=== PATIENT | female | born 1955 | race Caucasian/White ===

== ENCOUNTER → 2016-11-09 | Outpatient (CLI) | payer OTHER ==
[~2016-11-09] VITALS: Ht 165.1 cm; Wt 108.0 kg
[~2016-11-09] MED LIST: AMLO10TA82 PO; ATEN25TA PO; ATOR40TA70 PO; DOCU-143 PO; GEMF600T3 PO; HYDR-3812 PO; HYOS0.1216 PO; LEVO150T6 PO; LISI-593 PO; LISI1TAB8 PO; METF-478 PO; METF500T4 PO; MIRT15TA6 PO; NITR-65 PO; OMEG-109 PO; OMEP-10 PO; PHEN100T17 PO; ROSU20TA14 PO; SODI30SP2 NS
--- OUTSIDE RECORDS SUMMARY | 2016-11-09 09:55 | XMS REPORT | Continuity of Care Document ---
Author Author [facility] Organization [facility] Address Unknown Phone Unavailable Care Team Providers Care Openstack Cloud Consulting Architect Name Role Phone Angie Quesada PCP [phone] Source Comments Some departments are not documenting in the electronic medical record. If you do not see the information that you expected, contact Release of Information in the Health Information Management department at [phone] for further assistance in locating additional records.[facility] Active Allergies and Adverse Reactions No Known Allergies Current Medications Prescription Sig. Disp. Refills Start End Date Status Date LISINOPRIL-HYDROCHLOROTHI Take by mouth. Active AZIDE PO amLODIPine (NORVASC) 10 Take 10 mg by mouth Active mg tablet daily. hyoscyamine (LEVSIN/SL) Take 1 Tab by mouth every 30 Tab 3 04/28/20 Active 0.125 mg tablet 4 hours as needed for 13 Cramps. Max 1.5 mg/ day magnesium hydroxide (MILK Take 30 mL by mouth every Active OF MAGNESIA) 400 mg/5 mL 24 hours as needed. oral suspension omeprazole DR(+) Take 20 mg by mouth Active (PRILOSEC) 20 mg capsule daily. oxyCODone-acetaminophen Take 1-2 Tabs by mouth 30 Tab 0 05/15/20 Active (PERCOCET; ENDOCET; every 4 hours as needed 13 ROXICET) 5-325 mg tablet for Pain Earliest Fill Date: 05/15/13 Max 12 tabs/day Active Problems Problem Noted Date Nephrolithiasis 05/13/2013 Urolithiasis 04/14/2013 Overview: 02/28/13 CT ~1x2cm right renal stone, non-obstructing. Few small left non-obstructing renal stones. Images available but no report. 03/07/13 urine culture negative. Cr 0.9. ~1x2cm R renal pelvis stone on KUB (per report). 03/11 Dr. Reeves in [place]: KUB 3 calcific densities on R. 3 densities on L. Underwent urethral dilation, insertion R UPJ stent 6x26. 03/18 ESWL attempted 03/21 calcium 11.7, Cr 1.1 L ast Assessment & Plan: -To OR for PCNL 05/13/2013 -Will require right lower pole access with IR 05/12/2013 -3 days levaquin to be taken prior to procedure -To be seen by PAT today -Urine for culture today -Continue levsin prn stent pain. Will add oxybutynin 5mg bid. Discussed potential side effects of dry mouth, dry eyes, constipation. Social History Tobacco Use Types Packs/Day Years Used Date Former Smoker Cigarettes 2 45 Quit: 04/05/2011 Smokeless Tobacco: Never Used Alcohol Use Drinks/Week oz/Week Comments Yes rare Last Filed Vital Signs Vital Sign Reading Time Taken Blood Pressure 137/85 05/15/2013 10:49 AM CDT Pulse 94 05/15/2013 10:49 AM CDT Temperature 37.3 C (99.1 F) 05/15/2013 10:49 AM CDT Respiratory Rate 16 04/28/2013 11:12 AM CDT Height 1.651 m (5' 5") 05/13/2013 7:54 PM CDT Weight 120.2 kg (264 lb 15.9 oz) 05/13/2013 7:54 PM CDT Body Mass Index 44.1 05/13/2013 7:54 PM CDT Oxygen Saturation 94% 05/15/2013 10:49 AM CDT Plan of Care Health Maintenance Due Date Last Done Comments Physical (Comprehensive) 1962 Exam Pertussis Vaccine 1966 Tetanus Vaccine 1972 Cervical Cancer Screening 1976 Breast Cancer Screening 1995 Colorectal Cancer 2005 Screening Shingles Vaccine 2015 Influenza Vaccine 07/06/2016 Results from Last 3 Months Not on file
[2016-11-09 10:09] VITALS: BP 142/68
[2016-11-09 10:44] LABS: BASOPHILS % (AUTO) 1 % (0-10); EOSINOPHILS # (AUTO) 0.3 10^3/uL (0.0-0.3); EOSINOPHILS % (AUTO) 5 % (0-10); LYMPHOCYTES # (AUTO) 1.8 X 10^3 (1.0-4.0); LYMPHOCYTES % (AUTO) 30 % (12-44); MEAN CORPUSCULAR HEMOGLOBIN 28 PG (25-34); MEAN CORPUSCULAR HGB CONC 32 G/DL (32-36); MEAN CORPUSCULAR VOLUME 88 FL (80-99); MEAN PLATELET VOLUME 11.7 FL (7.4-10.4); MONOCYTES # (AUTO) 0.5 X 10^3 (0.0-1.0); MONOCYTES % (AUTO) 8 % (0-12); NEUTROPHILS # (AUTO) 3.4 X 10^3 (1.8-7.8); NEUTROPHILS % (AUTO) 56 % (42-75); PLATELET COUNT 341 10^3/uL (130-400); RED BLOOD COUNT 3.83 10^6/uL (4.35-5.85); RED CELL DISTRIBUTION WIDTH 14.8 % (10.0-14.5)
[2016-11-09 10:59] LABS: ANION GAP 8 MMOL/L (5-14); BLOOD UREA NITROGEN 22 MG/DL (7-18); BUN/CREATININE RATIO 23; CALCIUM 10.3 MG/DL (8.5-10.1); CARBON DIOXIDE 25 MMOL/L (21-32); CHLORIDE 107 MMOL/L (98-107); CREATININE SERUM 0.94 MG/DL (0.60-1.30); GFR ESTIMATED > 60; GLUCOSE 141 MG/DL (70-105); SODIUM 140 MMOL/L (135-145)
== END ==
LOC: PREOP 09:50
PROVIDERS: ATTEND Surgery
DX: Z01.812 Encounter for preprocedural laboratory examination (principal); Z11.2 Encounter for screening for other bacterial diseases; E21.3 Hyperparathyroidism, unspecified
CPT/HCPCS: 36415; 80048; 85025; 87081

== ENCOUNTER 2016-11-15 06:00 | Day surgery (SDC) | payer OTHER ==
[~2016-11-15] VITALS: Ht 165.1 cm; Wt 108.0 kg
[~2016-11-15 06:00] MED LIST changes: -DOCU-143 PO; -HYDR-3812 PO; -LEVO150T6 PO; -LISI1TAB8 PO; -METF-478 PO; -SODI30SP2 NS
[2016-11-15 06:24] VITALS: BP 124/67
[2016-11-15] MEDS ORDERED: FAMOTIDINE 20MG/2ML IV (PEPCID) ONE (06:38)
[2016-11-15] MEDS ORDERED: FAMOTIDINE 20MG/2ML IV (PEPCID) IV ONE (06:45)
--- OUTSIDE RECORDS SUMMARY | 2016-11-15 06:46 | XMS REPORT | Continuity of Care Document ---
Author Author [facility] Organization [facility] Address Unknown Phone Unavailable Care Team Providers Care Bunch Maker Hand Name Role Phone Angie Quesada PCP [phone] Source Comments Some departments are not documenting in the electronic medical record. If you do not see the information that you expected, contact Release of Information in the Health Information Management department at [phone] for further assistance in locating additional records.[facility] Active Allergies and Adverse Reactions [...] KUB (per report). 03/11 Dr. Reeves in [place]: KUB 3 calcific densities on R. 3 [...]
--- OUTSIDE RECORDS SUMMARY | 2016-11-15 06:46 | XMS REPORT | Continuity of Care Document ---
Author Author [facility] Organization [facility] Address Unknown Phone Unavailable Care Team Providers Care Talent Scout Name Role Phone Angie Quesada PCP [phone] Source Comments Some departments are not documenting in the electronic medical record. If you do not see the information that you expected, contact Release of Information in the Health Information Management department at [phone] for further assistance in locating additional records.[facility] Active Allergies and Adverse Reactions No Known [...] KUB (per report). 03/11 Dr. Reeves in [place]: KUB 3 calcific densities on R. 3 [...]
[2016-11-15] MEDS ORDERED: LACTATED RINGERS 1,000 ML IV ONE ×3 (06:48→09:41)
[2016-11-15] MEDS ORDERED: proPOfol 200 MG/20 ML (DIPRIVAN) VIAL IV ONE (06:48)
[2016-11-15] MEDS ORDERED: ONDANSETRON 4 MG/2 ML (SDV) Z0FRAN ONE (06:48)
[2016-11-15] MEDS ORDERED: SEVOFLURANE (ULTANE) 15 ML INHAL SOLN ONE ×2 (06:48→09:41)
[2016-11-15] MEDS ORDERED: LIDOCAINE PF 2% 10 ML (XYLOCAINE) AMP ONE (06:48)
[2016-11-15] MEDS ORDERED: DEXAMETHASONE PF 10 MG/ML (DECADRON) VIAL ONE (06:48)
[2016-11-15] MEDS ORDERED: SUCCINYLCHOLINE INJ 100 MG/5 ML SYR ONE (06:48)
[2016-11-15] MEDS ORDERED: fentaNYL INJECTION 250 MCG/5 ML AMP ONE (06:49)
[2016-11-15] MEDS ORDERED: MIDAZOLAM 2 MG/2 ML (VERSED) VIAL ONE (06:49)
[2016-11-15] MEDS: LACTATED RINGERS 1,000 ML IV PRN ×3 (06:50→09:50)
[2016-11-15] MEDS ORDERED: THROMBIN SPRAY KIT 5,000 UNIT VIAL ONE (06:52)
[2016-11-15] MEDS ORDERED: BUP/EPI 0.25% 1:200,000 (MARCAINE) 30 ML VIAL ONE (06:52)
[2016-11-15] MEDS ORDERED: ceFAZolin 2 GM IV (SDC ONLY) 50 ML ONE (07:36)
--- NOTE | 2016-11-15 07:44 | Progress Note-Pre Operative ---
Pre-Operative Progress Note H&P Reviewed The H&P was reviewed, patient examined and no changes noted. Date H&P Reviewed: Nov 15, 2016 Time H&P Reviewed: 07:43 Pre-Operative Diagnosis: Follicular neoplasm of thyroid. Persistent Hyperparathyroidism JANET SIMS MD Nov 15, 2016 7:44 am
[2016-11-15] MEDS ORDERED: ceFAZolin 2GM/50 ML DEXTROSE (PREMIX) IV ONE (09:45)
--- NOTE | 2016-11-15 09:53 | Progress Note-Post Operative ---
Post-Operative Progess Note Pre-Operative Diagnosis Follicular Neoplasm of Thyroid, Persistent Hyperparathyroidism Post-Operative Diagnosis Same Post-Op Procedure Note Date of Procedure: Nov 15, 2016 Name of Procedure: total thyroidectomy with nerve monitoring Wedge biopsy of left inferior parathyroid gland Anesthesia Type Gen. Estimated blood loss (mL): 50 mL Specimen(s) collected both lobes of thyroid and a wedge of left inferior parathyroid gland JANET SIMS MD Nov 15, 2016 09:53
[2016-11-15] MEDS ORDERED: LEVO150T6 PO (09:55)
[2016-11-15] MEDS ORDERED: HYDR-3812 PO (09:55)
--- NOTE | 2016-11-15 09:57 | Discharge Inst-Simple/Standard ---
Discharge Inst-Standard Discharge Medications New, Converted or Re-Newed RX: RX on Chart Patient Instructions/Follow Up Plan of Care/Instructions/FU: dressings off in a.m. Follow-up in 4 weeks. Activity as Tolerated: Yes Discharge Diet: No Restrictions JANET SIMS MD Nov 15, 2016 09:57
[2016-11-15] MEDS ORDERED: fentaNYL INJECTION 100 MCG/2 ML AMP IVP PRN (10:00)
[2016-11-15] MEDS ORDERED: ONDANSETRON 4 MG/2 ML (SDV) Z0FRAN IVP PRN ×2 (10:00→10:15)
[2016-11-15] MEDS ORDERED: morphine INJ 10 MG/ML 1ML (SYR OR VIAL) ONE (10:02)
[2016-11-15] MEDS ORDERED: LABETALOL HCL 20 MG/4 ML VIAL ONE (10:11)
[2016-11-15] MEDS: morphine INJ 10 MG/ML 1ML (SYR OR VIAL) IVP PRN ×2 (10:12→10:24)
[2016-11-15] MEDS ORDERED: HYDROmorphone (DILAUDID) 2 MG/ML VIAL IVP PRN (10:15)
[2016-11-15] MEDS ORDERED: MEPERIDINE (DEMEROL) INJ 50 MG/ML IVP PRN (10:15)
[2016-11-15] MEDS ORDERED: HYDROmorphone (DILAUDID) 2 MG/ML VIAL ONE (10:18)
[2016-11-15] MEDS ORDERED: LABETALOL HCL 20 MG/4 ML VIAL IV ONE (10:30)
--- NOTE | 2016-11-15 10:38 | OPERATIVE REPORT ---
PROCEDURE PHYSICIAN: JANET SIMS DATE OF PROCEDURE: 11/15/2016 PREOPERATIVE DIAGNOSIS: 1. Follicular neoplasm of thyroid 2. Persistent hyperparathyroidism. POSTOPERATIVE DIAGNOSIS: 1. Follicular neoplasm of thyroid. 2. Persistent hyperparathyroidism. OPERATION: 1. Total thyroidectomy. 2. Wedge biopsy of normal left inferior parathyroid gland. 3. Intraoperative nerve monitoring. SURGEON: Luis ANESTHESIA: General anesthesia. BLOOD LOSS: 50 mL. FLUIDS: 2 liters of crystalloids. TYPE OF WOUND: Type I (clean wound). INDICATION FOR THE PROCEDURE: This lady underwent excision of a large left superior parathyroid adenoma at an outside facility in August 2015. She had persistent hyperparathyroidism. However, imaging was negative for any missed adenoma. During this evaluation, a large thyroid nodule became evident. Core biopsy was indicative of follicular neoplasm. Therefore, total thyroidectomy was felt to be reasonable. The possibility of finding an intrathyroidal parathyroid adenoma contributing to persistent hyperparathyroidism was discussed. With regard to the operation itself, complications of hematoma, transient hoarseness of voice and hypocalcemia were discussed with her. DESCRIPTION OF PROCEDURE: She was placed supine on the operating table and general anesthesia induced using an endotracheal. Ancef was administered intravenously as prophylaxis against wound infection. Sequential compression devices were placed around her legs, to minimize the risk of venous thrombosis. A Sandoval catheter was placed to decompress the bladder during surgery. It was removed at the end of the operation. Her neck and upper chest were prepared and draped in the usual sterile manner. Preemptive analgesia was established using 0.25% Marcaine with epinephrine. A secondary incision was made along the previous scar and platysma incised transversely. Flaps were raised superiorly to the level of the thyroid cartilage and inferiorly to the sternal notch. Cervical fascia was incised vertically and the strap muscles were retracted laterally. I began the dissection on the left side. A hard thyroid nodule containing the follicular neoplasm came into view. The lobe was retracted medially identifying a distinct middle thyroid vein. This was controlled using harmonic scalpel. Subsequently, superior thyroid artery was controlled between 2-0 silk sutures, reinforced with Ligaclips. Branches of the inferior thyroid artery were controlled using Harmonic scalpel and Ligaclips. Recurrent laryngeal nerve was identified by constant visual inspection and intermittent nerve stimulation technique. The isthmus was then divided and the left lobe sent for permanent histologic examination. A normal looking parathyroid gland, possibly inferior in location was identified and confirmed by obtaining a wedge of tissue for frozen section analysis. I then examined the thymus gland; I did not identify any additional parathyroid adenoma. The carotid sheath was palpated and no additional adenoma was encountered. Therefore, we elected to proceed with the right lobectomy. A similar dissection was performed on the right side. Recurrent nerve was found in its conventional location and protected. One parathyroid gland, possibly superior in location was found to be of normal size. It was preserved, along with its blood supply. Superior thyroid artery was controlled using 2-0 silk sutures and a Ligaclips and lobectomy completed. We had the anesthesiologist conduct Valsalva maneuver, looking for any venous bleeding. There was not any. Gelfoam, soaked in thrombin solution was then placed along the tracheoesophageal groove to optimize hemostasis. Neck was then flexed, in preparation for closure. Cervical fascia was approximated using 3-0 Vicryl and platysma using the same material. The skin was closed using 4-0 Vicryl, in a subcuticular fashion. She tolerated the procedure well, was extubated in the operating room and taken to the recovery room in a stable condition. Tracy, sponges, and instruments were correct at the end of the operation. Job ID: [id number] Dictated Date: 11/15/2016 09:49:35 Engineer Remote Control Diesel Date: 11/15/2016 10:17:08 / ever PEGUERO
[2016-11-15] MEDS: inSUlin ASPART (NovoLOG) 1 UNIT/0.01 ML (CHARGE PER UNIT) SC SCH ×3 (11:00→20:56)
[2016-11-15 11:15] VITALS: BP 195/86
[2016-11-15] MEDS: meTOprolol 5 MG/5 ML (LOPRESSOR) VIAL IV SCH ×2 (11:35→18:27)
[2016-11-15] MEDS ORDERED: METF-478 PO (13:03)
[2016-11-15] MEDS ORDERED: SODI30SP2 NS (13:03)
[2016-11-15] MEDS ORDERED: LISI1TAB8 PO (13:03)
[2016-11-15] MEDS ORDERED: DOCU-143 PO (13:03)
[2016-11-15] MEDS: LACTATED RINGERS 1,000 ML IV SCH ×2 (13:28→20:00)
[2016-11-15] MEDS ORDERED: DOCUSATE SODIUM 100 MG (COLACE) CAP PO PRN (14:00)
[2016-11-15] MEDS ORDERED: METFORMIN HCL 500 MG PO SCH (14:00)
[2016-11-15] MEDS: lisINopril 20 MG (ZESTRIL) TAB PO SCH (14:33)
[2016-11-15] MEDS: HYDROCHLOROTHIAZIDE 25 MG (HCTZ) TAB PO SCH (14:33)
[2016-11-15] MEDS: HYDROcodone/APAP 5 MG/325 MG (LORTAB) TAB PO PRN ×2 (14:37→19:20)
[2016-11-15] MEDS ORDERED: FLU TRIvalent (5 YOA+) 2016-17 (AFLURIA) 0.5 ML IM ONE (14:45)
[2016-11-15 16:00] VITALS: BP 164/85
[2016-11-15] MEDS ORDERED: metFORMIN XR 500 MG (GLUCOPHAGE XR) TAB PO SCH (17:00)
[2016-11-15] MEDS: OMEGA 3 (FISH OIL) 1000 MG CAP PO SCH (17:35)
[2016-11-15 19:00] VITALS: BP 169/89
[2016-11-15] MEDS: PANTOPRAZOLE 20 MG TABLET (PROTONIX) PO SCH (21:00)
[2016-11-15] MEDS ORDERED: OMEPRAZOLE 20 MG (PriLOSEC) CAP NON-FORMULARY PO SCH (21:00)
[2016-11-15] MEDS ORDERED: NON-FORMULARY MEDICATION 1 EA EA (Omega-3 Fatty Acids/Fish Oil (Fish Oil 1,200 mg Softgel) PO SCH (21:00)
[2016-11-15] MEDS ORDERED: ATENOLOL 25 MG (TENORMIN) TAB PO SCH (21:00)
[2016-11-15] MEDS ORDERED: NON-FORMULARY MEDICATION 1 EA EA (Mirtazapine 15 MG) PO SCH (21:00)
[2016-11-15] MEDS: GEMFIBROZIL 600 MG (LOPID) TAB PO SCH (21:00)
[2016-11-15] MEDS ORDERED: MIRTAZAPINE 15 MG (REMERON) TAB PO SCH (21:00)
[2016-11-16] VITALS: BP 137/80
[2016-11-16] MEDS: HYDROcodone/APAP 5 MG/325 MG (LORTAB) TAB PO PRN ×3 (00:05→12:07)
[2016-11-16] MEDS: meTOprolol 5 MG/5 ML (LOPRESSOR) VIAL IV SCH ×3 (00:13→12:00)
[2016-11-16 04:00] VITALS: BP 162/71
[2016-11-16] MEDS: LACTATED RINGERS 1,000 ML IV SCH (05:57)
[2016-11-16] MEDS: inSUlin ASPART (NovoLOG) 1 UNIT/0.01 ML (CHARGE PER UNIT) SC SCH ×2 (06:00→12:06)
[2016-11-16 06:16] LABS: CALCIUM 8.7 MG/DL (8.5-10.1); CREATININE SERUM 1.36 MG/DL (0.60-1.30); MAGNESIUM 1.7 MG/DL (1.8-2.4); PHOSPHORUS 4.7 MG/DL (2.3-4.7); POTASSIUM 4.6 MMOL/L (3.6-5.0)
[2016-11-16] MEDS: OMEGA 3 (FISH OIL) 1000 MG CAP PO SCH (06:48)
[2016-11-16] MEDS: PANTOPRAZOLE 20 MG TABLET (PROTONIX) PO SCH (06:48)
[2016-11-16 08:00] VITALS: BP 115/55
[2016-11-16] MEDS: GEMFIBROZIL 600 MG (LOPID) TAB PO SCH (09:00)
[2016-11-16] MEDS: lisINopril 20 MG (ZESTRIL) TAB PO SCH (09:00)
[2016-11-16] MEDS ORDERED: ATORVASTATIN 40 MG (LIPITOR) TABLET PO SCH (09:00)
[2016-11-16] MEDS: HYDROCHLOROTHIAZIDE 25 MG (HCTZ) TAB PO SCH (09:00)
[2016-11-16] MEDS: MAGNESIUM 1 GM/100 ML IVPB 100 ML IV SCH ×2 (09:00→10:26)
[2016-11-16 12:00] VITALS: BP_SYST 112; BP_SYST 158; BP_DIAS 70; BP_DIAS 79
[2016-11-16] MEDS ORDERED: LEVOTHYROXINE 150 MCG (LEVOTHROID) TAB PO NR (12:15)
[2016-11-16 13:20] VITALS: BP 112/70
--- NOTE | 2016-11-16 13:28 | Progress Note-Standard ---
Standard Progress Note Progress Notes/Assess & Plan Progress/Assessment & Plan 11/16/16:doing well. Vocal cord function normal. No wound hematoma. Calcium back to normal. Magnesium low this morning, replaced. Be discharged home. Final Diagnosis follicular neoplasm of thyroid JANET SIMS MD Nov 16, 2016 1:28 pm
== END 2016-11-16 14:05 | disposition home or self-care (01) ==
LOC: SDC 06:00 → 4TH 11:21 → SDC 11-16 14:05
PROVIDERS: ATTEND Surgery
DX: C73 Malignant neoplasm of thyroid gland (principal); E21.3 Hyperparathyroidism, unspecified; Z11.2 Encounter for screening for other bacterial diseases; Z79.899 Other long term (current) drug therapy
CPT/HCPCS: 36415; 80048; 82962; 83735; 84100; 88305; 88307; 88331

== ENCOUNTER → 2016-12-11 | Outpatient (CLI) | payer OTHER ==
[~2016-12-11] MED LIST changes: +DOCU-143 PO; +HYDR-3812 PO; +LEVO150T6 PO; +LISI1TAB8 PO; +METF-478 PO; +SODI30SP2 NS
--- OUTSIDE RECORDS SUMMARY | 2016-12-11 14:28 | XMS REPORT | Continuity of Care Document ---
Author Author [facility] Organization [facility] Address Unknown Phone Unavailable Care Team Providers Care Return To Service Inspector Name Role Phone Angie Quesada PCP [phone] Source Comments Some departments are not documenting in the electronic medical record. If you do not see the information that you expected, contact Release of Information in the Health Information Management department at [phone] for further assistance in locating additional records.[facility] Active Allergies and Adverse Reactions No [...] KUB (per report). 03/11 Dr. Reeves in [place]: KUB 3 calcific densities on R. 3 [...]
[2016-12-11 23:32] LABS: CALCIUM IONIZED 1.32 mmol/L (1.16-1.32); CORRECTED IONIZED CALCIUM 1.31 mmol/L (1.16-1.32)
[2016-12-12 07:44] LABS: CALCIUM PARA THYROID HORMONE 10.1 mg/dL (8.5-10.5); CALCIUM PH 7.4
== END ==
LOC: LAB 14:26
PROVIDERS: ATTEND Surgery
DX: C73 Malignant neoplasm of thyroid gland (principal)
CPT/HCPCS: 36415; 82330; 83970; 84436; 84443; 84480

== ENCOUNTER 2016-12-14 05:42 | Outpatient (CLI) | payer OTHER ==
[~2016-12-14] VITALS: Ht 165.1 cm; Wt 108.0 kg
--- OUTSIDE RECORDS SUMMARY | 2016-12-14 05:44 | XMS REPORT | Continuity of Care Document ---
Author Author [facility] Organization [facility] Address Unknown Phone Unavailable Care Team Providers Care Integrated Marketing Specialist Name Role Phone Angie Quesada PCP [phone] Source Comments Some departments are not documenting in the electronic medical record. If you do not see the information that you expected, contact Release of Information in the Health Information Management department at [phone] for further assistance in locating additional records.[facility] Active Allergies and Adverse Reactions [...] KUB (per report). 03/11 Dr. Reeves in [place]: KUB 3 calcific densities on R. 3 [...]
== END 2016-12-14 14:46 ==
LOC: PREOP 05:42
PROVIDERS: ATTEND Surgery
DX: Z01.818 Encounter for other preprocedural examination (principal); R13.10 Dysphagia, unspecified

== ENCOUNTER 2016-12-18 06:48 | Day surgery (SDC) | payer OTHER ==
[~2016-12-18] VITALS: Ht 165.1 cm; Wt 108.0 kg
--- OUTSIDE RECORDS SUMMARY | 2016-12-18 06:52 | XMS REPORT | Continuity of Care Document ---
Author Author [facility] Organization [facility] Address Unknown Phone Unavailable Care Team Providers Care Take Out Waitress Name Role Phone Angie Quesada PCP [phone] Source Comments Some departments are not documenting in the electronic medical record. If you do not see the information that you expected, contact Release of Information in the Health Information Management department at [phone] for further assistance in locating additional records.[facility] Active Allergies and Adverse Reactions No [...] KUB (per report). 03/11 Dr. Reeves in [place]: KUB 3 calcific densities on R. 3 [...]
--- OUTSIDE RECORDS SUMMARY | 2016-12-18 06:52 | XMS REPORT | Continuity of Care Document ---
Author Author [facility] Organization [facility] Address Unknown Phone Unavailable Care Team Providers Care Application Systems Architect Name Role Phone Angie Quesada PCP [phone] Source Comments Some departments are not documenting in the electronic medical record. If you do not see the information that you expected, contact Release of Information in the Health Information Management department at [phone] for further assistance in locating additional records.[facility] Active Allergies and Adverse Reactions No [...] KUB (per report). 03/11 Dr. Reeves in [place]: KUB 3 calcific densities on R. 3 [...]
[2016-12-18] MEDS ORDERED: fentaNYL INJECTION 100 MCG/2 ML AMP IVP PRN (07:15)
[2016-12-18] MEDS ORDERED: NALOXONE 0.4 MG/ML 1 ML (NARCAN) VIAL IVP PRN (07:15)
[2016-12-18] MEDS ORDERED: FLUMAZENIL (ROMAZICON) 0.1 MG/ML 5 ML VIAL INJ PRN (07:15)
[2016-12-18] MEDS ORDERED: HURRICAINE EXT TUBE (BENZOCAINE) XX PRN (07:15)
[2016-12-18] MEDS ORDERED: NS IV 500 ML 500 ML IV SCH (07:15)
[2016-12-18 07:44] VITALS: BP 140/67
[2016-12-18] MEDS: MIDAZOLAM 2 MG/2 ML (VERSED) VIAL IVP PRN ×3 (08:13→08:22)
[2016-12-18] MEDS ORDERED: MIDAZOLAM 2 MG/2 ML (VERSED) VIAL ONE ×3 (08:13→08:14)
[2016-12-18] MEDS ORDERED: HURRICAINE EXT TUBE (BENZOCAINE) ONE (08:14)
[2016-12-18] MEDS ORDERED: fentaNYL INJECTION 100 MCG/2 ML AMP ONE (08:14)
--- NOTE | 2016-12-18 08:17 | Pre-Op Note & Conscious Sedat ---
Pre-Operative Progress Note H&P Reviewed The H&P was reviewed, patient examined and no changes noted. Date H&P Reviewed: Dec 18, 2016 Time H&P Reviewed: 08:16 Pre-Op Diagnosis: dysphagia Conscious Sedation Pre-Proced ASA Class: 2 Airway Mallampati Classification: ([place] appropriate class) I. II. III, IV Lungs Heart ASA score ASA 1: a normal healthy patient ASA 2: a patient with a mild systemic disease (mid diabetes, controlled hypertension, obesity ASA 3: a patient with a severe systemic disease that limits activity (angina , COPD, prior Myocardial infarction) ASA 4: a patient with an incapacitating disease that is a constant threat to life (CHF, renal failure) ASA 5: a moribund patient not expected to survive 24 hrs. (ruptured aneurysm) ASA 6: a declared brain patient whose organs are being harvested. For emergent operations, add the letter E after the classification Grade 2 Sedation Plan: Discussed options with patient/fam Note The patient is an appropriate candidate to undergo the planned procedure, sedation, and anesthesia. The patient immediately re-assessed prior to indication. JANET SIMS MD Dec 18, 2016 8:17 am
--- NOTE | 2016-12-18 08:47 | Progress Note-Post Operative ---
Post-Operative Progess Note Pre-Operative Diagnosis dysphagia Post-Operative Diagnosis hhiatal hernia with a peptic stricture. Grade 2 esophagitis. Antral erosions and gastritis Post-Op Procedure Note Date of Procedure: Dec 18, 2016 Name of Procedure: EGD with antral biopsy Balloon dilatation of distal esophageal stricture Anesthesia Type sedation Specimen(s) collected antral mucosa JANET SIMS MD Dec 18, 2016 8:47 am
--- NOTE | 2016-12-18 08:48 | Discharge Inst-Simple/Standard ---
Discharge Inst-Standard Discharge Medications New, Converted or Re-Newed RX: Other Patient Instructions/Follow Up Plan of Care/Instructions/FU: follow-up with me in 1 month. Activity as Tolerated: Yes Discharge Diet: Soft Diet JANET SIMS MD Dec 18, 2016 8:48 am
[2016-12-18 08:50] VITALS: BP 144/58
[2016-12-18 09:15] VITALS: BP 156/63
--- NOTE | 2016-12-18 09:30 | PROCEDURE REPORT ---
PROCEDURE PHYSICIAN: JANET SIMS DATE OF PROCEDURE: 12/18/2016 PROCEDURE: 1. Upper GI endoscopy with antral biopsy. 2. Balloon dilatation of esophageal stricture. SURGEON: Dr. Sims. INDICATION FOR THE PROCEDURE: This lady presented with dysphagia and chronic symptoms of gastroesophageal reflux. She was offered endoscopy with a view to performing balloon dilatation, should a stricture be confirmed. Informed consent was obtained after reviewing the procedure in detail. DESCRIPTION OF PROCEDURE: She was placed in left lateral decubitus position and her vital signs were monitored. Conscious sedation was achieved using Versed and fentanyl. The flexible gastroscope was introduced down the esophagus, past the stomach, into the proximal duodenum. FINDINGS: ESOPHAGUS: 1. Hiatal hernia with a peptic stricture at the distal end. It was dilated to 20 mm with a balloon. 2. Changes of grade 2 esophagitis were also encountered, proximal to the stricture. STOMACH: Distal gastritis with a very small antral erosion. Biopsy was obtained for Helicobacter status. DUODENUM: Normal. She tolerated the procedure well and was taken back to the nursing area in stable condition. IMPRESSION: 1. Dysphagia due to a distal esophageal peptic stricture. 2. Balloon dilatation completed. Job ID: [id number] Dictated Date: 12/18/2016 08:45:11 Wood Handler Date: 12/18/2016 09:27:09 / joanne PEGUERO
[2016-12-18 09:45] VITALS: BP 156/63
== END 2016-12-18 10:00 | disposition home or self-care (01) ==
LOC: ENDO 06:48
PROVIDERS: ATTEND Surgery
DX: K22.2 Esophageal obstruction (principal); K20.9 Esophagitis, unspecified; K44.9 Diaphragmatic hernia without obstruction or gangrene; K29.70 Gastritis, unspecified, without bleeding
CPT/HCPCS: 88305

== ENCOUNTER → 2017-01-22 | Outpatient (CLI) | payer OTHER ==
--- OUTSIDE RECORDS SUMMARY | 2017-01-22 16:57 | XMS REPORT | Continuity of Care Document ---
Author Author [facility] Organization [facility] Address Unknown Phone Unavailable Care Team Providers Care Finance Analyst Name Role Phone Angie Quesada PCP [phone] Source Comments Some departments are not documenting in the electronic medical record. If you do not see the information that you expected, contact Release of Information in the Health Information Management department at [phone] for further assistance in locating additional records.[facility] Active Allergies and Adverse Reactions No [...] KUB (per report). 03/11 Dr. Reeves in [place]: KUB 3 calcific densities on R. 3 [...]
[2017-01-22 17:18] LABS: CALCIUM 10.1 MG/DL (8.5-10.1)
[2017-01-22 17:46] LABS: THYROID STIMULATING HORMONE 0.08 UIU/ML (0.35-4.94)
[2017-01-24 12:09] LABS: CALCIUM PARA THYROID HORMONE 10.4 mg/dL (8.5-10.5)
== END ==
LOC: LAB 16:52
PROVIDERS: ATTEND Surgery
DX: E05.90 Thyrotoxicosis, unspecified without thyrotoxic crisis or storm (principal); E89.0 Postprocedural hypothyroidism
CPT/HCPCS: 36415; 82310; 83970; 84443

== ENCOUNTER 2017-02-08 05:47 | Outpatient (CLI) | payer OTHER ==
[~2017-02-08] VITALS: Ht 165.1 cm; Wt 117.9 kg
== END 2017-02-08 12:54 ==
LOC: PREOP 05:47
PROVIDERS: ATTEND Surgery
DX: Z01.818 Encounter for other preprocedural examination (principal); K59.00 Constipation, unspecified

== ENCOUNTER 2017-02-12 07:26 | Day surgery (SDC) | payer OTHER ==
[~2017-02-12] VITALS: Ht 165.1 cm; Wt 117.9 kg
[2017-02-12] MEDS ORDERED: NS IV 500 ML 500 ML IV SCH (07:30)
[2017-02-12] MEDS ORDERED: NALOXONE 0.4 MG/ML 1 ML (NARCAN) VIAL IVP PRN (07:30)
[2017-02-12] MEDS ORDERED: FLUMAZENIL (ROMAZICON) 0.1 MG/ML 5 ML VIAL INJ PRN (07:30)
[2017-02-12 07:44] VITALS: BP 107/71
[2017-02-12] MEDS ORDERED: MIDAZOLAM 2 MG/2 ML (VERSED) VIAL ONE ×3 (07:49)
[2017-02-12] MEDS ORDERED: fentaNYL INJECTION 100 MCG/2 ML AMP ONE ×2 (07:49)
[2017-02-12] MEDS: fentaNYL INJECTION 100 MCG/2 ML AMP IVP PRN ×4 (08:33→08:46)
[2017-02-12] MEDS: MIDAZOLAM 2 MG/2 ML (VERSED) VIAL IVP PRN ×3 (08:35→08:45)
--- NOTE | 2017-02-12 08:58 | Conscious Sedation/ASA ---
Conscious Sedation Pre-Proced ASA Class: 2 Airway Mallampati Classification: ([place] appropriate class) I. II. III, IV Lungs Heart ASA score ASA 1: a normal healthy patient ASA 2: a patient with a mild systemic disease (mid diabetes, controlled hypertension, obesity ASA 3: a patient with a severe systemic disease that limits activity (angina , COPD, prior Myocardial infarction) ASA 4: a patient with an incapacitating disease that is a constant threat to life (CHF, renal failure) ASA 5: a moribund patient not expected to survive 24 hrs. (ruptured aneurysm) ASA 6: a declared brain patient whose organs are being harvested. For emergent operations, add the letter E after the classification Grade 2 Sedation Plan: Discussed options with patient/fam Note The patient is an appropriate candidate to undergo the planned procedure, sedation, and anesthesia. The patient immediately re-assessed prior to indication. JANET SIMS MD Feb 12, 2017 8:58 am
--- NOTE | 2017-02-12 08:58 | Endoscopy Procedure Report ---
Endoscopy Report Date: Feb 12, 2017 Preoperative Diagnosis: sscreening for colon cancer Study Performed: Colonoscopy Procedure Instrument: Colonoscope Findings Findings 1.: Polyp, Diverticulosis Copy Copies To 1: ANAIS VASQUEZ XAVIER M MD Feb 12, 2017 8:58 am
--- NOTE | 2017-02-12 08:59 | Discharge Inst-Simple/Standard ---
Discharge Inst-Standard Discharge Medications New, Converted or Re-Newed RX: Other Patient Instructions/Follow Up Plan of Care/Instructions/FU: repeat colonoscopy in 5 years Activity as Tolerated: Yes Discharge Diet: ADA Diet JANET SIMS MD Feb 12, 2017 8:59 am
[2017-02-12 09:10] VITALS: BP 88/53
--- NOTE | 2017-02-12 09:18 | OPERATIVE REPORT ---
PROCEDURE PHYSICIAN: JANET SIMS DATE OF PROCEDURE: 02/12/2017 PROCEDURE: 1. Screening colonoscopy. 2. Polypectomy (hot biopsy) x2. SURGEON: Dr. Sims. INDICATION FOR THE PROCEDURE: This lady came in for screening colonoscopy. Informed consent was obtained after reviewing the procedure in detail. DESCRIPTION OF PROCEDURE: She was placed in left lateral decubitus position and her vital signs were monitored. Conscious sedation was achieved using Versed and fentanyl. Digital rectal examination was unremarkable. The colonoscope was then introduced into the rectum and advanced all the way up to the cecum. The scope was then withdrawn slowly and the mucosa examined in a systematic fashion. FINDINGS: 1. 1 mm polyp at the distal sigmoid colon, that was excised with hot biopsy forceps. 2. A similar polyp at the proximal sigmoid colon, that was excised with hot biopsy forceps, as well. 3. Very few, sigmoid diverticula. She tolerated the procedure well and was taken back to the nursing area in a stable condition. IMPRESSION: 1. Screening colonoscopy. 2. Small polyps excised from the sigmoid colon. 3. Recommend repeating in 5 years. Job ID: [id number] Dictated Date: 02/12/2017 08:57:02 Hearing Care Practitioner Date: 02/12/2017 09:05:14 / marc PEGUERO
[2017-02-12 09:45] VITALS: BP 122/84
[2017-02-12 10:00] VITALS: BP 122/84
== END 2017-02-12 10:00 | disposition home or self-care (01) ==
LOC: ENDO 07:26
PROVIDERS: ATTEND Surgery
DX: Z12.11 Encounter for screening for malignant neoplasm of colon (principal); K63.5 Polyp of colon; K57.90 Diverticulosis of intestine, part unspecified, without perforation or abscess without bleeding
CPT/HCPCS: 88305